=== PATIENT | male | born 1955 | race Caucasian/White ===

== ENCOUNTER 2022-02-15 14:50 | Outpatient (CLI) | payer MEDICARE | END 2022-02-15 14:51 | disposition home or self-care (01) | LOC: CSHMRI 14:50 | PROVIDERS: ATTEND Psychiatry & Neurology Neurology | DX: M50.120 Mid-cervical disc disorder, unspecified level (principal); Z98.890 Other specified postprocedural states; M48.02 Spinal stenosis, cervical region | CPT/HCPCS: 70551; 72141 ==

== ENCOUNTER 2022-03-12 10:56 | Emergency (ER) | payer MEDICARE ==
[2022-03-12] MEDS ORDERED: Ketorolac Tromethamine 30 MG/ML VIAL ONE (13:10)
[2022-03-12] MEDS ORDERED: HYDROcodone/Acetaminophen 10/325 mg Tablet ONE (13:10)
[2022-03-12] MEDS ORDERED: HYDROcodone/Acetaminophen 5/325 mg Tablet ONE (13:16)
== END 2022-03-12 14:14 | disposition home or self-care (01) ==
LOC: CSHERS 10:56
DX: S93.402A Sprain of unspecified ligament of left ankle, initial encounter (principal); M25.462 Effusion, left knee; X58.XXXA Exposure to other specified factors, initial encounter; I10 Essential (primary) hypertension
CPT/HCPCS: J1885

== ENCOUNTER 2022-04-11 15:04 | Outpatient (CLI) | payer MEDICARE | END 2022-04-11 15:05 | disposition home or self-care (01) | LOC: CSHMRI 15:04 | PROVIDERS: ATTEND Orthopaedic Surgery | DX: M17.12 Unilateral primary osteoarthritis, left knee (principal); S83.282A Other tear of lateral meniscus, current injury, left knee, initial encounter; S83.242A Other tear of medial meniscus, current injury, left knee, initial encounter; M94.262 Chondromalacia, left knee; M94.8X6 Other specified disorders of cartilage, lower leg; M25.462 Effusion, left knee; M65.9 Synovitis and tenosynovitis, unspecified ==

== ENCOUNTER 2022-06-03 11:49 | Observation (INO) | payer MEDICARE ==
[~2022-06-03 11:49] MED LIST: Iopamidol 300 61% 100 ML VIAL FS ONE
[2022-06-03] MEDS ORDERED: Ondansetron PF 4 MG/2 ML Vial ONE ×2 (12:54→16:52)
[2022-06-03 13:07] LABS: #Eosinphils 0.1 10x3/uL (0.0-0.5); #Monocytes 0.9 10x3/uL (0.0-1.1); #Neutrophils 6.9 10x3/uL (1.5-8.4); %Basophils 0.3 % (0.0-2.0); %Monocytes 9.6 % (0.0-10.0); %Neutrophils 75.7 % (40.0-75.0); Hemoglobin 12.9 g/dL (13.5-17.5); Mean Corpuscular Hemoglobin 26.2 pg (27.0-33.0); Mean Corpuscular Volume 81.9 fl (81.2-95.1); Mean Platelet Volume 9.5 fl (7.4-10.4); Platelet Count 206 10x3/uL (150-450); RBC Distribution Width 16.9 % (11.5-14.5); Red Blood Cell (RBC) Count 4.92 10x6/uL (4.32-5.72); White Blood Cell (WBC) Count 9.1 10x3/uL (3.5-10.5)
[2022-06-03 13:17] LABS: ALT (SGPT) 38 U/L (8-55); AST (SGOT) 31 U/L (5-34); Albumin 3.7 g/dL (3.4-4.8); Alkaline Phosphatase 48 U/L (40-110); Anion Gap 13 mmol/L (10-20); BUN (Urea Nitrogen) 19 mg/dL (8.4-25.7); Bilirubin, Total 1.1 mg/dL (0.2-1.2); Calc. Creatinine Clearance 0 mL/min (70-130); Carbon Dioxide 24 mmol/L (23-31); Chloride 104 mmol/L (98-107); Estimated GFR 66; Globulin 2.5 g/dL (2.4-3.5); Glucose 122 mg/dL (80-115); Magnesium 1.7 mg/dL (1.6-2.6); Potassium 3.8 mmol/L (3.5-5.1); Protein, Total 6.2 g/dL (5.8-8.1); Sodium 137 mmol/L (136-145)
[2022-06-03] MEDS ORDERED: Metoclopramide HCl 10 MG/2 ML VIAL ONE (13:44)
[2022-06-03] MEDS ORDERED: HYDROcodone/Acetaminophen 5/325 mg Tablet ONE (13:47)
[2022-06-03] MEDS ORDERED: HYDROmorphone 0.5 MG/0.5 ML SYRINGE ONE (14:41)
[2022-06-03 15:01] LABS: Bilirubin Neg (Negative); Blood, Urine Negative (Negative); Clarity Clear (Clear); Glucose, Urine (Dipstick) Normal (Negative); Ketone, Urine 5 mg/dL (Negative); Leukocyte Negative (Negative); Nitrite Negative (Negative); Protein, Urine (Dipstick) Negative (Neg-Trace); Specific Gravity, Urine 1.025 (1.005-1.030); Urobilinogen Normal mg/dL (Less than 2)
[2022-06-03] MEDS ORDERED: PROPOFOL 20 ML ONE (16:52)
[2022-06-03] MEDS ORDERED: Dexamethasone 20 MG/5 ML VIAL ONE (16:52)
[2022-06-03] MEDS ORDERED: Lidocaine 1% PF 5 ML VIAL ONE (16:52)
[2022-06-03] MEDS ORDERED: Fentanyl 100 MCG/2 ML VIAL ONE (16:52)
[2022-06-03] MEDS ORDERED: Succinylcholine 200 MG/10 ml SYRINGE FS ONE (16:53)
[2022-06-03] MEDS ORDERED: Iopamidol 30 ML ONE (16:55)
[2022-06-03] MEDS ORDERED: Midazolam HCl 2 mg/2 ml Vial ONE (17:25)
[2022-06-03] MEDS ORDERED: Levofloxacin 500 mg/D5W 100 ml Premix Bag ONE (17:40)
[2022-06-03 17:45] LABS: SARS-CoV-2 NAA Rapid Test Not Detected (NotDetected)
[2022-06-03] MEDS ORDERED: Acetaminophen 325 MG TAB PO PRN (21:25)
[2022-06-03] MEDS ORDERED: Calcium Carbonate 500 MG ChewTAB PO PRN (21:25)
[2022-06-03] MEDS ORDERED: Bisacodyl 5 MG TAB PO PRN (21:25)
[2022-06-03] MEDS ORDERED: Gabapentin 300 MG CAP PO SCH (21:30)
[2022-06-03] MEDS ORDERED: traMADol HCl 50 MG TAB PO SCH (21:30)
[2022-06-03 21:52] VITALS: BMI 28.5
[2022-06-03] MEDS: Sodium Chloride 0.9% 1,000 ML IV SCH (22:14)
[2022-06-04] MEDS ORDERED: FLU VACC QS2022-23(65YR UP)/PF 240 MCG/0.7 ML SYRINGE IM ONE (09:00)
[2022-06-04] MEDS: Sodium Chloride 0.9% 1,000 ML IV SCH (09:27)
[2022-06-04] MEDS ORDERED: Ciprofloxacin 500 MG TAB PO SCH (11:15)
[2022-06-04 15:34] VITALS: BP 123/67; TEMP 98.3
[2022-06-04] MEDS ORDERED: Gabapentin 300 MG CAP PO SCH (21:00)
[2022-06-04] MEDS ORDERED: traMADol HCl 50 MG TAB PO SCH (21:00)
== END 2022-06-04 14:00 | disposition home or self-care (01) ==
LOC: CSHERS 11:49 → CSHSDC/OP 17:50 → INTOOBSV 19:35 → CSHTELE 19:35
PROVIDERS: ADMIT Internal Medicine; ATTEND Internal Medicine
PROC: 0T778DZ Dilation of Left Ureter with Intraluminal Device, Via Natural or Artificial Opening Endoscopic (ICD-10-PCS; principal; 2022-06-03)
DX: N13.2 Hydronephrosis with renal and ureteral calculous obstruction (principal); G43.909 Migraine, unspecified, not intractable, without status migrainosus; I10 Essential (primary) hypertension; Z88.8 Allergy status to other drugs, medicaments and biological substances; Z88.5 Allergy status to narcotic agent; Z88.6 Allergy status to analgesic agent; Z79.899 Other long term (current) drug therapy; Z85.46 Personal history of malignant neoplasm of prostate; Z20.822 Contact with and (suspected) exposure to COVID-19
CPT/HCPCS: 51600; 52332; 74177; 74430; 80053; 81003; 83735; 85025; 96372; 96374; 96375; 99285; C2617; G0378 ×2; U0002; J1100; J1170; J1650; J1956; J2250; J2405; J2704; J2765; J3010; J7050; Q9967